=== PATIENT | male | born 1955 | race Two or more races ===

== ENCOUNTER 2025-03-15 13:21 | Inpatient (IN) | payer BC, MEDICAID ==
[~2025-03-15] VITALS: Ht 170.2 cm; Wt 91.2 kg
--- NOTE | 2025-03-15 13:45 | ECG ---
[facility] Test Date: 2025-03-15 Test Time: 13:34:23 Pat Name: CRAIG MURO Department: Room: 0274 Gender: M Procurement Consultant: GP : [id number] Requested By: ANAIS SCALES Order Number: [id number] Reading MD: Daron Escalante Measurements Intervals Conner Rate: 91 P: 40 LA: 149 QRS: 140 QRSD: 102 T: -3 QT: 369 QTc: 455 Interpretive Statements Sinus rhythm Inferolateral infarct, old Electronically Signed On 03-20-2025 20:26:37 PDT by Daron Escalante Please click the below link to view image of tracing.
--- NOTE | 2025-03-15 14:17 | ED.PDOC ---
History of Present Illness HPI Comments 69-year-old male who comes in with chief complaint of left upper abdominal pain times approximately four weeks. The patient describes the pain as burning in nature. The patient states that the pain is a 7/10. There has been no nausea, vomiting, fever or chills. The patient also denies any diarrhea. The patient was able to ambulate into the emergency department's without any problems. The patient actually went to see his primary care doctor and was referred to the emergency department's for further evaluation. He denies any trauma to the area. Chief Complaint: Abdominal Pain Time Seen by MD: 13:25 Reviewed Notes: Nurses Notes, Medications, Allergies (No allergies to medications) Allergies: Coded Allergies: NO KNOWN ALLERGIES (Unverified , 03/15/25) Information Source: Patient Mode of Arrival: Ambulatory Severity: Moderate Timing: Weeks Duration: Since onset Prehospital treatment: None Associated signs and symptoms No associated nausea, vomiting or diarrhea Past Medical History PAST MEDICAL HISTORY: Cancer (Previous history of prostate cancer), DM, High Lipids, HTN Surgical History: Denies all surgeries Family History Family History: Family hx of heart jesus Social History Smoker: Non-Smoker Alcohol: Denies ETOH Use Drugs: Denies Drug Use Lives In: Home Constitutional: denies: chills, diaphoresis, fatigue, fever, malaise, sweats, weakness, others EENTM: denies: blurred vision, double vision, ear bleeding, ear discharge, ear drainage, ear pain, ear ringing, eye pain, eye redness, hearing loss, mouth pain, mouth swelling, nasal discharge, nose bleeding, nose congestion, nose pain, photophobia, tearing, throat pain, throat swelling, voice changes, others Cardiovascular: denies: chest pain, dizzy spells, diaphoresis, Dyspnea on exertion, edema, irregular heart beat, left arm pain, lightheadedness, palpitations, PND, syncope, others Gastrointestinal: reports: abdominal pain Genitourinary: denies: burning, dysuria, flank pain, frequency, hematuria, incontinence, penile discharge, penile sore, pain, testicle pain, testicle swelling, urgency, others Neurological: denies: dizziness, fainting, headache, left sided numbness, left sided weakness, numbness, paresthesia, pre-existing deficit, right sided numbness, right sided weakness, seizure, speech problems, tingling, tremors, weakness, others Musculoskeletal: denies: back pain, gout, joint pain, joint swelling, muscle pain, muscle stiffness, neck pain, others Integumetry: denies: bruises, change in color, change in hair/nails, dryness, laceration, lesions, lumps, rash, wounds, others Allergic/Immunocompromised: denies: Difficulty Healing, Frequent Infections, Hives, Itching, others Hematologic/Lymphatic: denies: anemia, blood clots, easy bleeding, easy bruising, swollen glands, others Endocrine: denies: excessive hunger, excessive sweating, excessive thirst, excessive urination, flushing, intolerance to cold, intolerance to heat, unexplained weight gain, unexplained weight loss, others Psychiatric: denies: anxiety, bipolar disorder, depression, hopeless, panic dis order, schizophrenia, sleepless, suicidal, others Physical Exam General Appearance: Moderate Distress HEENT: Normal ENT Inspection, Pharynx Normal, TMs Normal Neck: Full Range of Motion, Non-Tender, Normal, Normal Inspection Respiratory: Chest Non-Tender, Lungs Clear, No Accessory Muscle Use, No Respiratory Distress, Normal Breath Sounds Cardiovascular: No Edema, No JVD, No Murmur, No Gallop, Normal Peripheral Pulses, Regular Rate/Rhythm Breast Exam: Deferred Gastrointestinal: LUQ, No Organomegaly, No Pulsatile Mass, Normal Bowel Sounds, Soft, Tenderness Genitalia: Deferred Pelvic: Deferred Rectal: Deferred Extremities: No calf tenderness, Normal capillary refill, Normal inspection, Normal range of motion, Non-tender, No pedal edema Musculoskeletal : Apperance: Normal Neurologic: Alert, environmental air specialist II-XII nml as Tested, Motor Weakness, Normal Affect, Normal Mood, No Sensory Deficits Cerebellar Function: Normal Reflexes: Normal Skin: Dry, Normal Color, Warm Lymphatic: No Adenopathy Was a procedure done? Was a procedure done?: No EKG EKG : Pulse Rate (adult): 91 Dike: Normal Cardiac Rhythm: NSR Block: None ST: Nonsp Differential Dx Considerations may include: Incarcerated hernia, abscess, ileus, cholecystitis X-Ray, Labs, Meds, VS Vital Signs Date Time Temp Pulse Resp B/P (MAP) Pulse Ox O2 Delivery O2 Flow Rate FiO2 03/15/25 14:17 91 03/15/25 13:34 91 03/15/25 13:24 98.1 94 20 131/92 97 98.1 Lab Test 03/15/25 14:35 03/15/25 14:05 Range/Units Urine Color Yellow Yellow Urine Clarity Clear Clear Urine pH 6.0 5.0-9.0 Urine Specific [place] 1.017 1.001-1.035 Urine Protein Negative Negative Urine Ketones Negative Negative Urine Blood Negative Negative /uL Urine Nitrite Negative Negative Urine Bilirubin Negative Negative Urine Urobilinogen Normal Negative mg/dL Urine Leukocyte Esterase Negative Negative /uL Urine RBC <1 0 - 3 /hpf Urine Microscopic WBC 0-3 /HPF Urine Squamous Epithelial Cells None seen <5 /hpf Urine Bacteria None seen None Seen /hpf Urine Hyaline Casts Few 0 - 2 /lpf Urine Glucose Normal Normal mg/dL White Blood Count 6.6 4.4-10.8 10^3/uL Red Blood Count 4.74 4.5-5.90 10^6/uL Hemoglobin 15.0 13.5-17.5 g/dL Hematocrit 43.6 41.0-53.0 % Mean Corpuscular Volume 92.0 80.0-100.0 fL Mean Corpuscular Hemoglobin 31.7 28.0-32.0 pg Mean Corpuscular Hemoglobin Concent 34.4 32.0-36.0 g/dL Red Cell Distribution Width 13.7 11.8-14.3 % Platelet Count 258 140-450 10^3/uL Mean Platelet Volume 8.5 6.9-10.8 fL Neutrophils (%) (Auto) 53.3 37.0-80.0 % Lymphocytes (%) (Auto) 32.7 10.0-50.0 % Monocytes (%) (Auto) 7.1 0.0-12.0 % Eosinophils (%) (Auto) 5.7 0.0-7.0 % Basophils (%) (Auto) 1.2 0.0-2.0 % Neutrophils # (Auto) 3.5 1.6-8.6 10 ^3/uL Lymphocytes # (Auto) 2.2 0.4-5.4 10 ^3/uL Monocytes # (Auto) 0.5 0-1.3 10 ^3/uL Eosinophils # (Auto) 0.4 0-0.8 10 ^3/uL Basophils # (Auto) 0.1 0-0.2 10 ^3/uL Nucleated Red Blood Cells 0.0 % Sodium Level 139 136-145 mmol/L Potassium Level 3.8 3.5-5.1 mmol/L Chloride Level 100 98-107 mmol/L Carbon Dioxide Level 26 20-31 mmol/L Anion Gap 13 5-15 Blood Urea Nitrogen 23 9-23 mg/dL Creatinine 1.16 0.700-1.30 mg/dL Glomerular Filtration Rate Calc 69 >90 mL/min BUN/Creatinine Ratio 19.8 10.0-20.0 Serum Glucose 114 H 74-106 mg/dL Calcium Level 9.3 8.7-10.4 mg/dL CAT scan of the abdomen and pelvis shows: IMPRESSION: Limited evaluation without contrast. Findings suggestive of multiple right hepatic lobe hypodense lesions measuring up to 4.8 cm. Recommend multiphasic MRI abdomen to evaluate. Moderate size hiatal hernia. Moderate volume stool in the colon. Colonic diverticular disease. Atherosclerotic disease. Large left scrotal hydrocele. The CBC and chemistry panel are within normal limits. The liver enzymes are within normal limits. The urine test is negative at this time The patient continues to have a significant amount of abdominal pain The patient will be admitted to the hospitalist. Images Reviewed?: Images reviewed and evaluated by me Time of 1ST Reevaluation: 15:02 Reevaluation 1ST: Unchanged Patient Education/Counseling: Diagnosis, Treatment, Prognosis Family Education/Counseling: No Family Present SEPSIS Sepsis Screen Date sepsis recognized/suspect: Mar 15, 2025 Time Sepsis recognized/suspect: 1324 Recent Procedure: No On Antibiotic Therapy: No Respiratory Rate >20: No Heart Rate >90: Yes Temp<36 C (96.8 F) or >38.3 C: No SBP <90 or MAP <65 mmHG: No New Acute Mental Status Change: No Is the patient on CPAP, BIPAP,: No Physician Orders Ct Ab Pel Wo Con-No Oral Or Iv (03/15/25 13:44) Heplock Iv (03/15/25 13:44) Vital Signs Date Time Temp Pulse Resp B/P (MAP) Pulse Ox O2 Delivery O2 Flow Rate FiO2 03/15/25 14:17 91 03/15/25 13:34 91 03/15/25 13:24 98.1 94 20 131/92 97 98.1 Laboratory Tests Test 03/15/25 14:05 White Blood Count 6.6 10^3/uL (4.4-10.8) Departure 1 Departure Time of Disposition: 15:02 Impression: Primary Impression: Intractable abdominal pain Additional Impression: Liver lesion Disposition: 09 ADMITTED INPATIENT Admit to: Med Surg Condition: Fair Critical Care Note Critical Care Time?: No Stability Stability form required: Yes Unstable for transfer: ED Physician Assesment (Clinical assesment) Heart Score Heart Score: Heart Score Response (Comments) Value History N/A 0 EKG N/A 0 Age N/A 0 Risk Factors N/A 0 Troponin N/A 0 Total 0 ANAIS SCALES MD Mar 15, 2025 14:17
[2025-03-15 14:20] LABS: Hematocrit 43.6 % (41.0-53.0); Hemoglobin 15.0 g/dL (13.5-17.5); Mean Corpuscular Hemoglobin 31.7 pg (28.0-32.0); Mean Corpuscular Volume 92.0 fL (80.0-100.0); Nucleated Red Blood Cells % 0.0 %
--- NOTE | 2025-03-15 14:22 | DVH ---
Indication: pain in the luq Technique: CT axial images of the abdomen and pelvis are obtained without contrast. Coronal and sagit altaf reformats were obtained. Radiation Dose Information: CTDI volume is 13.04 mGy. Dose-length product is 765.72 mGy*cm Comparison: None FINDINGS: There is limited interpretation of the abdomen and pelvis without administration of intravenous contr ast. The lung bases demonstrate atelectasis. Adrenal glands, spleen unremarkable in shape. Fatty infiltration of the pancreas. Heterogeneous appe arance of the liver. There are multiple right hepatic lobe lesions including lesions measuring 4.7 c m, 4.8 cm, 3.[address] evidence for cholelithiasis. No hydronephrosis, nephrolithiasis. Moderate size hiatal hernia. Small bowel loops are normal in caliber. Colonic diverticular disease. Moderate volume stool in the colon. Normal appendix. Abdominal aortic atherosclerotic disease and tortuosity. Bladder partially distended. No free pelvic fluid. No inguinal lymphadenopathy. No aggressive osseous process. Severe lumbar degenerative disc disease. Large left scrotal hydrocele. IMPRESSION: Limited evaluation without contrast. Findings suggestive of multiple right hepatic lobe hypodense lesions measuring up to 4.8 cm. Recomme nd multiphasic MRI abdomen to evaluate. Moderate size hiatal hernia. Moderate volume stool in the colon. Colonic diverticular disease. Atherosclerotic disease. Large left scrotal hydrocele. Other findings as described.
[2025-03-15 14:26] LABS: Chloride 100 mmol/L (98-107); Potassium 3.8 mmol/L (3.5-5.1); Sodium 139 mmol/L (136-145)
[2025-03-15 14:27] LABS: Anion Gap 13 (5-15); Calcium 9.3 mg/dL (8.7-10.4); Carbon Dioxide 26 mmol/L (20-31)
[2025-03-15 14:32] LABS: BUN/Creatinine Ratio 19.8 (10.0-20.0)
[2025-03-15 14:33] LABS: Blood Urea Nitrogen 23 mg/dL (9-23); Glucose 114 mg/dL (74-106)
[2025-03-15 14:48] LABS: Urine Protein, UAD Negative (Negative)
[2025-03-15] MEDS ORDERED: ALLO100T PO (18:13)
[2025-03-15] MEDS ORDERED: ATOR20TA50 PO (18:13)
--- NOTE | 2025-03-15 18:14 | DVHHP2 ---
Admitting Diagnosis: Abdominal pain History of Present Illness 69 y/o male patient with history of prostate cancer presents with abdominal pain. Patient describes pain as burning. Denies fever, vomiting, diarrhea. While in the emergency department the patient was evaluated by the provider, As per provider: Labs, vital signs, and imagining monitored. Patient will be admitted for further evaluation and treatment. I discussed admission with the patient/family and is in agreement to treatment plan. Allergies: Coded Allergies: NO KNOWN ALLERGIES (Unverified , 03/15/25) Home Meds Reported Medications Sildenafil Citrate (Viagra) 50 Mg Tab, 50 MG PO, TAB 03/16/25 Simethicone (Simethicone) 80 Mg Chw, 80 MG PO, TAB.CHEW 03/16/25 Omeprazole (Gnp Omeprazole) 20 Mg Tab, 20 MG PO, TAB 03/16/25 Atorvastatin Calcium (ATORVASTATIN CALCIUM) 20 Mg Tab, 1 TAB PO DAILY, #30 TAB 5 Refills 03/16/25 Atorvastatin Calcium (ATORVASTATIN CALCIUM) 20 Mg Tab, 1 TAB PO DAILY 03/15/25 Allopurinol (Allopurinol) 100 Mg Tab, 2 TAB PO DAILY 03/15/25 Current Medications Current Medications Medications (Trade) Dose Ordered Sig/Jona Route PRN Reason Start Time Stop Time Status Last Admin Temazepam (Restoril) 15 mg QHSP PRN PO FOR INSOMNIA 03/15/25 22:00 Enoxaparin Sodium (Lovenox) 40 mg DAILY SC 03/16/25 10:00 Diagnostic Test (Pha) (Accu-Chek Comfort Curve T) 1 strip ACHS 03/15/25 22:00 03/16/25 16:37 Insulin Human Regular (InsuLIN R) HS SC 03/15/25 22:00 03/15/25 22:00 Insulin Human Regular (InsuLIN R) AC SC 03/16/25 07:00 Pantoprazole Sodium (Protonix) 40 mg DAILY IV 03/16/25 10:00 03/16/25 10:34 Polyethylene Glycol (Miralax 17GM Powder) 17 gm DAILY PO 03/16/25 10:00 Review of Systems Constitutional: denies chills, denies fever, denies malaise Eyes: denies eye pain, denies vision change ENT: denies ear pain, denies headache, denies nasal congestion, denies painful swallowing, denies voice change Cardiovascular: denies chest pain, denies edema, denies orthopnea, denies palpitations, denies paroxysmal nocturnal dyspnea Respiratory: denies cough, denies shortness of breath Gastrointestinal: denies constipation, denies diarrhea, denies nausea, denies vomiting Genitourinary: denies dysuria, denies frequent urination, denies urethral discharge Musculoskeletal: denies back pain, denies joint pain, denies muscle pain Skin: denies bruising, denies itching, denies rash Neurological: denies focal weakness, denies headache, denies sensory changes Psychiatric: denies anxiety, denies depression Endocrine: denies polydipsia, denies polyuria Hematologic/Lymphatic: denies easy bleeding, denies easy bruising, denies enlarged lymph nodes Allergic/Immunologic: denies allergy, denies hives Vital Signs Vital Signs Date Time Temp Pulse Resp B/P (MAP) Pulse Ox O2 Delivery O2 Flow Rate FiO2 03/16/25 17:04 97.6 78 16 115/85 (95) 97 97.6 03/16/25 08:00 Room Air* 0 21 Physical Exam General Appearance: alert, no distress HEENT: EOMI, PERRLA, normal external inspect of ears, no icterus, no nasal drainage Neck: no carotid bruit, no jugular venous distention (JVD), no lymphadenopathy Chest: normal thorax Respiratory: clear to auscultation, normal air movement Cardiovascular: regular rate and rhythm, no diastolic murmur, no jugular venous distention (JVD), no rub, no systolic murmur Abdominal: soft, no hepatomegaly, no mass, no splenomegaly, no tenderness Genitourinary: grossly normal external Musculoskeletal: no joint tenderness, no swelling Extremities: normal pulses, no calf tenderness, no clubbing, no cyanosis, no edema Skin: no bruising, no jaundice, no rash Neurological: alert, No focal deficit SEPSIS Sepsis Screen Date sepsis recognized/suspect: Mar 15, 2025 Time Sepsis recognized/suspect: 1710 Recent Procedure: No On Antibiotic Therapy: No Respiratory Rate >20: No Heart Rate >90: No Temp<36 C (96.8 F) or >38.3 C: No SBP <90 or MAP <65 mmHG: No New Acute Mental Status Change: No Is the patient on CPAP, BIPAP,: No Physician Orders Ct Ab Pel Wo Con-No Oral Or Iv (03/15/25 13:44) Heplock Iv (03/15/25 13:44) Admit (03/15/25 18:07) Code Status (03/15/25 18:07) 2 Gm Sodium Diet (03/15/25 Dinner) Sodium Chloride 0.9% (03/15/25 18:15) Hydrocodone-Acet 5/325mg Tab ([place] /32 (03/15/25 18:15) Temazepam (Restoril) (03/15/25 22:00) Ondansetron Hcl (Zofran) (03/15/25 18:15) Docusate Sodium Capsule (Colace Capsule) (03/15/25 18:15) Enoxaparin Sodium (Lovenox) (03/16/25 10:00) Condition: Stable (03/15/25 18:07) Acetaminophen Tablet (Tylenol Tablet) (03/15/25 18:15) * Urology Consult (03/15/25 18:07) Glucose Blood (Accu-Chek Comfort Curve T (03/15/25 22:00) Insulin R (Human) (Insulin R) (03/15/25 22:00) Insulin R (Human) (Insulin R) (03/16/25 07:00) Dextrose 50% Syringe (03/15/25 18:15) Afp Serum Tumor Marker (03/15/25 18:13) Pantoprazole (Protonix) (03/16/25 10:00) Polyethylene Glycol 17g Powder (Miralax (03/16/25 10:00) Morphine Sulfate Injection (03/15/25 18:30) Psa Total+% Free (03/15/25 19:58) Mri Abdomen W And Wo (03/16/25 18:13) * Gi Dvh [employer] Administrator (03/16/25 13:17) Vital Signs Date Time Temp Pulse Resp B/P (MAP) Pulse Ox O2 Delivery O2 Flow Rate FiO2 03/16/25 17:04 97.6 78 16 115/85 (95) 97 97.6 03/16/25 14:49 97.8 64 14 123/86 (98) 96 97.8 03/16/25 08:23 98.3 76 18 126/86 (99) 97 98.3 03/16/25 08:00 18 Room Air* 0 21 03/16/25 05:00 98.4 70 18 109/69 (82) 98 98.4 03/16/25 01:00 98.4 70 18 139/91 (107) 96 98.4 03/15/25 22:50 77 18 94 Room Air* 0 21 03/15/25 22:29 98.7 77 18 143/102 (116) 94 98.7 03/15/25 21:00 98.0 76 17 122/90 (101) 97 98.0 03/15/25 17:11 98.1 75 16 136/85 (102) 97 98.1 03/15/25 17:11 75 16 97 Room Air 03/15/25 14:17 91 03/15/25 13:34 91 03/15/25 13:24 98.1 94 20 131/92 97 98.1 Laboratory Tests Test 03/15/25 14:05 03/16/25 05:26 White Blood Count 6.6 10^3/uL (4.4-10.8) 6.3 10^3/uL (4.4-10.8) Medications Medications Dose Ordered Sig/Jona Route Start Time Stop Time Status Last Admin Dose Admin Pantoprazole Sodium 40 mg DAILY IV 03/16/25 10:00 03/16/25 10:34 Results Labs Test 03/16/25 16:37 03/16/25 05:26 03/15/25 20:47 03/15/25 14:35 Range/Units POC Glucose 111 H 70-106 mg/dl White Blood Count 6.3 4.4-10.8 10^3/uL Red Blood Count 4.50 4.5-5.90 10^6/uL Hemoglobin 14.3 13.5-17.5 g/dL Hematocrit 41.8 41.0-53.0 % Mean Corpuscular Volume 93.0 80.0-100.0 fL Mean Corpuscular Hemoglobin 31.8 28.0-32.0 pg Mean Corpuscular Hemoglobin Concent 34.2 32.0-36.0 g/dL Red Cell Distribution Width 13.7 11.8-14.3 % Platelet Count 264 140-450 10^3/uL Mean Platelet Volume 8.6 6.9-10.8 fL Neutrophils (%) (Auto) 53.0 37.0-80.0 % Lymphocytes (%) (Auto) 29.1 10.0-50.0 % Monocytes (%) (Auto) 9.5 0.0-12.0 % Eosinophils (%) (Auto) 7.3 H 0.0-7.0 % Basophils (%) (Auto) 1.1 0.0-2.0 % Neutrophils # (Auto) 3.3 1.6-8.6 10 ^3/uL Lymphocytes # (Auto) 1.8 0.4-5.4 10 ^3/uL Monocytes # (Auto) 0.6 0-1.3 10 ^3/uL Eosinophils # (Auto) 0.5 0-0.8 10 ^3/uL Basophils # (Auto) 0.1 0-0.2 10 ^3/uL Nucleated Red Blood Cells 0.1 % Sodium Level 139 136-145 mmol/L Potassium Level 3.6 3.5-5.1 mmol/L Chloride Level 101 98-107 mmol/L Carbon Dioxide Level 26 20-31 mmol/L Anion Gap 12 5-15 Blood Urea Nitrogen 22 9-23 mg/dL Creatinine 1.32 H 0.700-1.30 mg/dL Glomerular Filtration Rate Calc 59 >90 mL/min BUN/Creatinine Ratio 16.7 10.0-20.0 Serum Glucose 110 H 74-106 mg/dL Calcium Level 9.0 8.7-10.4 mg/dL Total Bilirubin 1.4 H 0.2-1.0 mg/dL Aspartate Amino Transferase (AST) 22 13-40 U/L Alanine Aminotransferase (ALT) 45 H 7-40 U/L Alkaline Phosphatase 81 46-116 U/L Total Protein 7.3 5.7-8.2 g/dL Albumin 4.2 3.2-4.8 g/dL Urine Color Yellow Yellow Urine Clarity Clear Clear Urine pH 6.0 5.0-9.0 Urine Specific [place] 1.017 1.001-1.035 Urine Protein Negative Negative Urine Ketones Negative Negative Urine Blood Negative Negative /uL Urine Nitrite Negative Negative Urine Bilirubin Negative Negative Urine Urobilinogen Normal Negative mg/dL Urine Leukocyte Esterase Negative Negative /uL Urine RBC <1 0 - 3 /hpf Urine Microscopic WBC 0-3 /HPF Urine Squamous Epithelial Cells None seen <5 /hpf Urine Bacteria None seen None Seen /hpf Urine Hyaline Casts Few 0 - 2 /lpf Urine Glucose Normal Normal mg/dL Test 03/15/25 14:05 Range/Units Carcinoembryonic Antigen 0.83 <=5.0 ng/mL Plan 1. Constipation Monitor, cathartics 2. Left hydrocele Monitor, urology consult 3. Hiatal hernia Monitor 4. Chronic diverticular disease Monitor 5. Hepatic lesions Monitor, MRI liver 6. Hx prostate cancer Monitor Plan discussed with: Patient, Other NATHANAEL KENYON NP Mar 15, 2025 18:13
[2025-03-15] MEDS ORDERED: DEXTROSE (50%) 50ML SYRG IV PRN (18:15)
[2025-03-15] MEDS ORDERED: DOCUSATE SOD 100 MG CAP PO PRN (18:15)
[2025-03-15] MEDS ORDERED: HYDROcodone-ACET 5/325MG TAB PO PRN (18:15)
[2025-03-15] MEDS ORDERED: ONDANSETRON HCL 4 MG/2 ML VIAL IV PRN (18:15)
[2025-03-15] MEDS ORDERED: ACETAMINOPHEN 325 MG TAB PO PRN (18:15)
[2025-03-15] MEDS ORDERED: MORPHINE SULFATE 4 MG/ML SYR/VIAL IV PRN (18:30)
[2025-03-15] MEDS: SODIUM CHLORIDE 0.9% 1,000 ML IV SCH (19:03)
--- NOTE | 2025-03-15 19:58 | DVHINCON2 ---
Date of service: Mar 15, 2025 Referring Physician Hospitalist Reason for Consultation Left hydrocele History of Present Illness 69-year-old male who comes in with chief complaint of left upper abdominal pain times approximately four weeks. The patient describes the pain as burning in nature. The patient states that the pain is a 7/10. There has been no nausea, vomiting, fever or chills. The patient also denies any diarrhea. The patient was able to ambulate into the emergency department's without any problems. The patient actually went to see his primary care doctor and was referred to the emergency department's for further evaluation. He denies any trauma to the area . CT Scan shows hiatal hernia and large left hydrocele. Patient states he has had this hydrocele since 1997. It does not bother him. It is not causing any significant discomfort. Past Medical History Cancer (Previous history of prostate cancer), DM, High Lipids, HTN Past Surgical History Prostate biopsy? Allergies: Coded Allergies: NO KNOWN ALLERGIES (Unverified , 03/15/25) Home Meds Reported Medications Sildenafil Citrate (Viagra) 50 Mg Tab, 50 MG PO, TAB 03/16/25 Simethicone (Simethicone) 80 Mg Chw, 80 MG PO, TAB.CHEW 03/16/25 Omeprazole (Gnp Omeprazole) 20 Mg Tab, 20 MG PO, TAB 03/16/25 Atorvastatin Calcium (ATORVASTATIN CALCIUM) 20 Mg Tab, 1 TAB PO DAILY, #30 TAB 5 Refills 03/16/25 Atorvastatin Calcium (ATORVASTATIN CALCIUM) 20 Mg Tab, 1 TAB PO DAILY 03/15/25 Allopurinol (Allopurinol) 100 Mg Tab, 2 TAB PO DAILY 03/15/25 Current Medications Current Medications Medications (Trade) Dose Ordered Sig/Jona Route PRN Reason Start Time Stop Time Status Last Admin Sodium Chloride 1,000 ml @ 60 mls/hr [id number] IV 03/15/25 18:15 03/15/25 19:03 Acetaminophen/ Hydrocodone Bitart ([place] 5/325MG Tab) 1 tab Q4HP PRN PO MODERATE PAIN (4-6 PAIN SCALE) 03/15/25 18:15 Temazepam (Restoril) 15 mg QHSP PRN PO FOR INSOMNIA 03/15/25 22:00 Ondansetron HCl (Zofran) 4 mg Q4HP PRN IV NAUSEA / VOMITING 03/15/25 18:15 Docusate Sodium (Colace Capsule) 100 mg BIDPRN PRN PO FOR CONSTIPATION 03/15/25 18:15 Enoxaparin Sodium (Lovenox) 40 mg DAILY SC 03/16/25 10:00 Acetaminophen (Tylenol Tablet) 650 mg Q6HP PRN PO PAIN SCALE 1-3 OR TEMP>100.4 03/15/25 18:15 Morphine Sulfate 2 mg Q4HPRN PRN IV SEVERE PAIN (7-10 PAIN SCALE) 03/15/25 18:30 Diagnostic Test (Pha) (Accu-Chek Comfort Curve T) 1 strip ACHS 03/15/25 22:00 Insulin Human Regular (InsuLIN R) HS SC 03/15/25 22:00 Insulin Human Regular (InsuLIN R) AC SC 03/16/25 07:00 Dextrose 50 ml UD PRN IV Blood Sugar LESS THAN 60 03/15/25 18:15 Pantoprazole Sodium (Protonix) 40 mg DAILY IV 03/16/25 10:00 Polyethylene Glycol (Miralax 17GM Powder) 17 gm DAILY PO 03/16/25 10:00 Review of Systems ED Review of Systems Constitutional: denies: chills, diaphoresis, fatigue, fever, malaise, sweats, weakness, others EENTM: denies: blurred vision, double vision, ear bleeding, ear discharge, ear drainage, ear pain, ear ringing, eye pain, eye redness, hearing loss, mouth pain, mouth swelling, nasal discharge, nose bleeding, nose congestion, nose pain, photophobia, tearing, throat pain, throat swelling, voice changes, others Cardiovascular: denies: chest pain, dizzy spells, diaphoresis, Dyspnea on exertion, edema, irregular heart beat, left arm pain, lightheadedness, palpitations, PND, syncope, others Gastrointestinal: reports: abdominal pain Genitourinary: denies: burning, dysuria, flank pain, frequency, hematuria, incontinence, penile discharge, penile sore, pain, testicle pain, testicle swelling, urgency, others Neurological: denies: dizziness, fainting, headache, left sided numbness, left sided weakness, numbness, paresthesia, pre-existing deficit, right sided numbness, right sided weakness, seizure, speech problems, tingling, tremors, weakness, others Musculoskeletal: denies: back pain, gout, joint pain, joint swelling, muscle pain, muscle stiffness, neck pain, others Integumetry: denies: bruises, change in color, change in hair/nails, dryness, laceration, lesions, lumps, rash, wounds, others Allergic/Immunocompromised: denies: Difficulty Healing, Frequent Infections, Hives, Itching, others Hematologic/Lymphatic: denies: anemia, blood clots, easy bleeding, easy bruising, swollen glands, others Endocrine: denies: excessive hunger, excessive sweating, excessive thirst, excessive urination, flushing, intolerance to cold, intolerance to heat, unexplained weight gain, unexplained weight loss, others Psychiatric: denies: anxiety, bipolar disorder, depression, hopeless, panic disorder, schizophrenia, sleepless, suicidal, others Vital Signs Vital Signs Date Time Temp Pulse Resp B/P (MAP) Pulse Ox O2 Delivery O2 Flow Rate FiO2 03/15/25 17:11 98.1 75 16 136/85 (102) 97 98.1 03/15/25 17:11 Room Air Physical Exam General Appearance: Moderate Distress HEENT: Normal ENT Inspection, Pharynx Normal, TMs Normal Neck: Full Range of Motion, Non-Tender, Normal, Normal Inspection Respiratory: Chest Non-Tender, Lungs Clear, No Accessory Muscle Use, No Respiratory Distress, Normal Breath Sounds Cardiovascular: No Edema, No JVD, No Murmur, No Gallop, Normal Peripheral Pulses, Regular Rate/Rhythm Breast Exam: Deferred Gastrointestinal: LUQ, No Organomegaly, No Pulsatile Mass, Normal Bowel Sounds, Soft, Tenderness Genitalia: Normal phallus, slightly enlarged left scrotum with notable hydrocele Extremities: No calf tenderness, Normal capillary refill, Normal inspection, Normal range of motion, Non-tender, No pedal edema Musculoskeletal : Apperance: Normal Neurologic: Alert, human resources assistant II-XII nml as Tested, Motor Weakness, Normal Affect, Normal Mood, No Sensory Deficits Cerebellar Function: Normal Reflexes: Normal Skin: Dry, Normal Color, Warm Lymphatic: No Adenopathy Labs/Diagnostic Data Labs Test 03/15/25 14:35 03/15/25 14:05 Range/Units Urine Color Yellow Yellow Urine Clarity Clear Clear Urine pH 6.0 5.0-9.0 Urine Specific [place] 1.017 1.001-1.035 Urine Protein Negative Negative Urine Ketones Negative Negative Urine Blood Negative Negative /uL Urine Nitrite Negative Negative Urine Bilirubin Negative Negative Urine Urobilinogen Normal Negative mg/dL Urine Leukocyte Esterase Negative Negative /uL Urine RBC <1 0 - 3 /hpf Urine Microscopic WBC 0-3 /HPF Urine Squamous Epithelial Cells None seen <5 /hpf Urine Bacteria None seen None Seen /hpf Urine Hyaline Casts Few 0 - 2 /lpf Urine Glucose Normal Normal mg/dL White Blood Count 6.6 4.4-10.8 10^3/uL Red Blood Count 4.74 4.5-5.90 10^6/uL Hemoglobin 15.0 13.5-17.5 g/dL Hematocrit 43.6 41.0-53.0 % Mean Corpuscular Volume 92.0 80.0-100.0 fL Mean Corpuscular Hemoglobin 31.7 28.0-32.0 pg Mean Corpuscular Hemoglobin Concent 34.4 32.0-36.0 g/dL Red Cell Distribution Width 13.7 11.8-14.3 % Platelet Count 258 140-450 10^3/uL Mean Platelet Volume 8.5 6.9-10.8 fL Neutrophils (%) (Auto) 53.3 37.0-80.0 % Lymphocytes (%) (Auto) 32.7 10.0-50.0 % Monocytes (%) (Auto) 7.1 0.0-12.0 % Eosinophils (%) (Auto) 5.7 0.0-7.0 % Basophils (%) (Auto) 1.2 0.0-2.0 % Neutrophils # (Auto) 3.5 1.6-8.6 10 ^3/uL Lymphocytes # (Auto) 2.2 0.4-5.4 10 ^3/uL Monocytes # (Auto) 0.5 0-1.3 10 ^3/uL Eosinophils # (Auto) 0.4 0-0.8 10 ^3/uL Basophils # (Auto) 0.1 0-0.2 10 ^3/uL Nucleated Red Blood Cells 0.0 % Sodium Level 139 136-145 mmol/L Potassium Level 3.8 3.5-5.1 mmol/L Chloride Level 100 98-107 mmol/L Carbon Dioxide Level 26 20-31 mmol/L Anion Gap 13 5-15 Blood Urea Nitrogen 23 9-23 mg/dL Creatinine 1.16 0.700-1.30 mg/dL Glomerular Filtration Rate Calc 69 >90 mL/min BUN/Creatinine Ratio 19.8 10.0-20.0 Serum Glucose 114 H 74-106 mg/dL Calcium Level 9.3 8.7-10.4 mg/dL Carcinoembryonic Antigen 0.83 <=5.0 ng/mL Assessment Left hydrocele- asymptomatic Plan/Recommendation Conservative management is recommended. Plan discussed with: Patient, Other JOE PARSONS MD Mar 15, 2025 19:58
[2025-03-15 21:00] VITALS: BP 122/90; PULSE 76; RESP 17; TEMP 98; O2SAT 97
[2025-03-15] MEDS ORDERED: TEMAZEPAM 15 MG CAP PO PRN (22:00)
[2025-03-15] MEDS: ACCU-CHEK COMFORT CURVE STRIP VI SCH (22:00)
[2025-03-15] MEDS: InsuLIN REG 1unit/0.01ml Soln (100units/ml) SC SCH (22:00)
[2025-03-15 22:29] VITALS: BP 143/102; PULSE 77; RESP 18; TEMP 98.7; O2SAT 94
[2025-03-15 22:50] VITALS: PULSE 77; RESP 18; O2SAT 94
[2025-03-16] VITALS (7 sets, daily range): BP systolic 109–139; BP diastolic 69–91; PULSE 60–78; RESP 14–18; TEMP 97.6–98.4; O2SAT 96–98
[2025-03-16] MEDS ORDERED: OMEP20TA PO (00:21)
[2025-03-16] MEDS ORDERED: SIME80CH49 PO (00:23)
[2025-03-16] MEDS ORDERED: SILD50TA PO (00:24)
[2025-03-16 06:12] LABS: Hematocrit 41.8 % (41.0-53.0); Hemoglobin 14.3 g/dL (13.5-17.5); Mean Corpuscular Hemoglobin 31.8 pg (28.0-32.0); Mean Corpuscular Volume 93.0 fL (80.0-100.0); Nucleated Red Blood Cells % 0.1 %
[2025-03-16] MEDS: InsuLIN REG 1unit/0.01ml Soln (100units/ml) SC SCH (06:19)
[2025-03-16 06:30] LABS: Albumin 4.2 g/dL (3.2-4.8); Alkaline Phosphatase 81 U/L (46-116); Anion Gap 12 (5-15); BUN/Creatinine Ratio 16.7 (10.0-20.0); Blood Urea Nitrogen 22 mg/dL (9-23); Calcium 9.0 mg/dL (8.7-10.4); Carbon Dioxide 26 mmol/L (20-31); Chloride 101 mmol/L (98-107); Potassium 3.6 mmol/L (3.5-5.1); Sodium 139 mmol/L (136-145); Total Protein 7.3 g/dL (5.7-8.2)
[2025-03-16 06:40] LABS: Alanine Aminotransferase 45 U/L (7-40); Bilirubin, Total 1.4 mg/dL (0.2-1.0); Glucose 110 mg/dL (74-106)
[2025-03-16] MEDS: GADOTERATE MEG 10 MMOL/20ml INJ (0.5MMOL/ml) IV ONE (09:35)
[2025-03-16] MEDS: POLYETHYLENE GLYCOL 17 GM PWDR PO SCH (10:00)
[2025-03-16] MEDS: ENOXAPARIN SOD 40 MG/0.4 ML SYRINGE SC SCH (10:00)
[2025-03-16] MEDS: PANTOPRAZOLE 40 MG/10 ML VIAL INJ IV SCH (10:34)
--- NOTE | 2025-03-16 12:36 | DVHPN2 ---
Progress Note - Dictate Date Seen: Mar 16, 2025 Medical Necessity Reason Pt with a Central, PICC or Fol: No vital signs Vital Sign Date Time Temp Pulse Resp B/P (MAP) Pulse Ox O2 Delivery O2 Flow Rate FiO2 03/16/25 08:23 98.3 76 18 126/86 (99) 97 98.3 03/15/25 22:50 Room Air* 0 21 Total Intake and Output 03/15/25 03/15/25 03/16/25 14:59 22:59 06:59 Intake Total 200 ml Output Total 0 ml Balance 200 ml medications Current Medications Medications Dose Ordered Sig/Jona Route Start Time Stop Time Status Last Admin Dose Admin Sodium Chloride 1,000 ml @ 60 mls/hr [id number] IV 03/15/25 18:15 03/16/25 10:38 60 MLS/HR Acetaminophen/ Hydrocodone Bitart 1 tab Q4HP PRN PO 03/15/25 18:15 Temazepam 15 mg QHSP PRN PO 03/15/25 22:00 Ondansetron HCl 4 mg Q4HP PRN IV 03/15/25 18:15 Docusate Sodium 100 mg BIDPRN PRN PO 03/15/25 18:15 Enoxaparin Sodium 40 mg DAILY SC 03/16/25 10:00 Acetaminophen 650 mg Q6HP PRN PO 03/15/25 18:15 Morphine Sulfate 2 mg Q4HPRN PRN IV 03/15/25 18:30 Diagnostic Test (Pha) 1 strip ACHS 03/15/25 22:00 03/16/25 11:20 1 STRIP Insulin Human Regular HS SC 03/15/25 22:00 03/15/25 22:00 2 UNITS Insulin Human Regular AC SC 03/16/25 07:00 Dextrose 50 ml UD PRN IV 03/15/25 18:15 Pantoprazole Sodium 40 mg DAILY IV 03/16/25 10:00 03/16/25 10:34 40 MG Polyethylene Glycol 17 gm DAILY PO 03/16/25 10:00 objective General Appearance: alert, no distress HEENT: EOMI, PERRLA, normal external inspect of ears, no icterus, no nasal drainage Neck: no carotid bruit, no jugular venous distention (JVD), no lymphadenopathy Chest: normal thorax Respiratory: clear to auscultation, normal air movement Cardiovascular: regular rate and rhythm, no diastolic murmur, no jugular venous distention (JVD), no rub, no systolic murmur Abdominal: soft, no hepatomegaly, no mass, no splenomegaly, no tenderness Genitourinary: grossly normal external Musculoskeletal: no joint tenderness, no swelling Extremities: normal pulses, no calf tenderness, no clubbing, no cyanosis, no edema Skin: no bruising, no jaundice, no rash Neurological: alert, No focal deficit laboratory and microbiology Laboratory Tests 03/16/25 05:26 Test 03/16/25 05:26 Range/Units Serum Glucose 110 H 74-106 mg/dL Problem List 1. Constipation Monitor, cathartics 2. Left hydrocele Monitor, urology consult 3. Hiatal hernia Monitor 4. Chronic diverticular disease Monitor 5. Hepatic lesions Monitor, MRI liver 6. Hx prostate cancer Monitor Assessment/Plan Subjective: Patient is awake and alert. Objective: Patient was admitted for abdominal pain. CT imaging showed large hiatal hernia, diverticular colon, constipation, and multiple liver masses. Patient has a history of prostate cancer. CEA is negative. Alpha-fetoprotein is pending. PSA is also pending. Plan: Await tumor marker labs. Start cathartics for constipation. GI consult for hiatal hernia. Plan for MRI liver protocol to evaluate liver masses. Plan discussed with: Patient, Other NATHANAEL KENYON NP Mar 16, 2025 12:36
--- NOTE | 2025-03-16 13:37 | DVH ---
CLINICAL HISTORY: Liver lesions. Left upper quadrant pain. TECHNIQUE: Multi sequence multi planar MRI images of the abdomen were obtained prior to and after th e uneventful administration of 20 mL Clariscan contrast. COMPARISON: CT CT AB PEL WO CON-NO ORAL OR IV on DOS: 03/15/25 FINDINGS: There is prominent artifact on the postcontrast images, likely due to motion and artifact associated with body habitus. There is hepatic steatosis with scattered areas of focal fatty sparing and areas of focal fatty infiltration. The lesions in the right hepatic lobe described on prior CT re port appear to be due to areas of focal fatty infiltration when correlated with the in and out of pha se images. T2 hyperintense lesion measuring up to 1.2 cm in the left hepatic lobe segment III demonst rates progressive enhancement on multiphase postcontrast images, with persistent enhancement greater than the adjacent liver parenchyma on delayed images, likely hemangioma. There are a few additional T 2 hyperintense lesions, which are not well-visualized on multiphase postcontrast images due to their small size and artifact obscuring visualization. No suspicious liver lesion identified given the limi tations of the examination. The gallbladder is mildly distended. No gallstones visualized. No biliary ductal dilatation. The spleen, pancreas, and adrenal glands are unremarkable. There is no hydronephr osis. Small cysts are seen in both kidneys. No suspicious renal mass. No abdominal aortic aneurysm. There is a moderate-sized hiatal hernia. Moderate ingested material visualized in the stomach. IMPRESSION: 1. Small lesion in the left hepatic lobe is most likely a benign hemangioma. Additional small T2 hype rintense foci are seen that are not well characterized on the postcontrast images due to their small size and prominent artifact on the postcontrast images. 2. Suspected lesions in the right hepatic lobe seen on CT are most consistent with areas of focal fat ty infiltration on MRI. 3. Bilateral renal cysts. 4. Moderate hiatal hernia.
--- NOTE | 2025-03-16 22:55 | DVHINCON2 ---
Date of service: Mar 16, 2025 Referring Physician Adore Fraknlin Reason for Consultation LUQ pain and liver lesions History of Present Illness 69 y/o male patient with history of prostate cancer presents with abdominal pain. Patient describes pain as burning. Denies fever, vomiting, diarrhea. Patient feels that the pain is related to his hernia. There was no nausea vomiting or GI bleeding. His last colonoscopy was eight years ago Patient seen at bedside resting comfortably. Past Medical History Cancer (Previous history of prostate cancer), DM, High Lipids, HTN Past Surgical History Cataracts Family History: FH: heart disease G8 MOTHER G8 FATHER Allergies: Coded Allergies: NO KNOWN ALLERGIES (Unverified , 03/15/25) Home Meds Reported Medications Sildenafil Citrate (Viagra) 50 Mg Tab, 50 MG PO, TAB 03/16/25 Simethicone (Simethicone) 80 Mg Chw, 80 MG PO, TAB.CHEW 03/16/25 Omeprazole (Gnp Omeprazole) 20 Mg Tab, 20 MG PO, TAB 03/16/25 Atorvastatin Calcium (ATORVASTATIN CALCIUM) 20 Mg Tab, 1 TAB PO DAILY, #30 TAB 5 Refills 03/16/25 Atorvastatin Calcium (ATORVASTATIN CALCIUM) 20 Mg Tab, 1 TAB PO DAILY 03/15/25 Allopurinol (Allopurinol) 100 Mg Tab, 2 TAB PO DAILY 03/15/25 Current Medications Current Medications Medications (Trade) Dose Ordered Sig/Jona Route PRN Reason Start Time Stop Time Status Last Admin Enoxaparin Sodium (Lovenox) 40 mg DAILY SC 03/16/25 10:00 Insulin Human Regular (InsuLIN R) AC SC 03/16/25 07:00 Pantoprazole Sodium (Protonix) 40 mg DAILY IV 03/16/25 10:00 03/16/25 10:34 Polyethylene Glycol (Miralax 17GM Powder) 17 gm DAILY PO 03/16/25 10:00 Vital Signs Vital Signs Date Time Temp Pulse Resp B/P (MAP) Pulse Ox O2 Delivery O2 Flow Rate FiO2 03/16/25 17:04 97.6 78 16 115/85 (95) 97 97.6 03/16/25 08:00 Room Air* 0 21 Physical Exam General Appearance: alert, no distress HEENT: EOMI, PERRLA, normal external inspect of ears, no icterus, no nasal drainage Neck: no carotid bruit, no jugular venous distention (JVD), no lymphadenopathy Chest: normal thorax Respiratory: clear to auscultation, normal air movement Cardiovascular: regular rate and rhythm, no diastolic murmur, no jugular venous distention (JVD), no rub, no systolic murmur Abdominal: soft, no hepatomegaly, no mass, no splenomegaly, no tenderness Genitourinary: grossly normal external Musculoskeletal: no joint tenderness, no swelling Extremities: normal pulses, no calf tenderness, no clubbing, no cyanosis, no edema Skin: no bruising, no jaundice, no rash Neurological: alert, No focal deficit Labs/Diagnostic Data Labs Test 03/16/25 21:25 03/16/25 05:26 03/15/25 20:47 03/15/25 14:35 Range/Units POC Glucose 135 H 70-106 mg/dl White Blood Count 6.3 4.4-10.8 10^3/uL Red Blood Count 4.50 4.5-5.90 10^6/uL Hemoglobin 14.3 13.5-17.5 g/dL Hematocrit 41.8 41.0-53.0 % Mean Corpuscular Volume 93.0 80.0-100.0 fL Mean Corpuscular Hemoglobin 31.8 28.0-32.0 pg Mean Corpuscular Hemoglobin Concent 34.2 32.0-36.0 g/dL Red Cell Distribution Width 13.7 11.8-14.3 % Platelet Count 264 140-450 10^3/uL Mean Platelet Volume 8.6 6.9-10.8 fL Neutrophils (%) (Auto) 53.0 37.0-80.0 % Lymphocytes (%) (Auto) 29.1 10.0-50.0 % Monocytes (%) (Auto) 9.5 0.0-12.0 % Eosinophils (%) (Auto) 7.3 H 0.0-7.0 % Basophils (%) (Auto) 1.1 0.0-2.0 % Neutrophils # (Auto) 3.3 1.6-8.6 10 ^3/uL Lymphocytes # (Auto) 1.8 0.4-5.4 10 ^3/uL Monocytes # (Auto) 0.6 0-1.3 10 ^3/uL Eosinophils # (Auto) 0.5 0-0.8 10 ^3/uL Basophils # (Auto) 0.1 0-0.2 10 ^3/uL Nucleated Red Blood Cells 0.1 % Sodium Level 139 136-145 mmol/L Potassium Level 3.6 3.5-5.1 mmol/L Chloride Level 101 98-107 mmol/L Carbon Dioxide Level 26 20-31 mmol/L Anion Gap 12 5-15 Blood Urea Nitrogen 22 9-23 mg/dL Creatinine 1.32 H 0.700-1.30 mg/dL Glomerular Filtration Rate Calc 59 >90 mL/min BUN/Creatinine Ratio 16.7 10.0-20.0 Serum Glucose 110 H 74-106 mg/dL Calcium Level 9.0 8.7-10.4 mg/dL Total Bilirubin 1.4 H 0.2-1.0 mg/dL Aspartate Amino Transferase (AST) 22 13-40 U/L Alanine Aminotransferase (ALT) 45 H 7-40 U/L Alkaline Phosphatase 81 46-116 U/L Total Protein 7.3 5.7-8.2 g/dL Albumin 4.2 3.2-4.8 g/dL Urine Color Yellow Yellow Urine Clarity Clear Clear Urine pH 6.0 5.0-9.0 Urine Specific [place] 1.017 1.001-1.035 Urine Protein Negative Negative Urine Ketones Negative Negative Urine Blood Negative Negative /uL Urine Nitrite Negative Negative Urine Bilirubin Negative Negative Urine Urobilinogen Normal Negative mg/dL Urine Leukocyte Esterase Negative Negative /uL Urine RBC <1 0 - 3 /hpf Urine Microscopic WBC 0-3 /HPF Urine Squamous Epithelial Cells None seen <5 /hpf Urine Bacteria None seen None Seen /hpf Urine Hyaline Casts Few 0 - 2 /lpf Urine Glucose Normal Normal mg/dL Test 03/15/25 14:05 Range/Units Carcinoembryonic Antigen 0.83 <=5.0 ng/mL MRI Abd IMPRESSION: 1. Small lesion in the left hepatic lobe is most likely a benign hemangioma. Additional small T2 hyperintense foci are seen that are not well characterized on the postcontrast images due to their small size and prominent artifact on the postcontrast images. 2. Suspected lesions in the right hepatic lobe seen on CT are most consistent with areas of focal fatty infiltration on MRI. 3. Bilateral renal cysts. 4. Moderate hiatal hernia. CT SCAN ABD PELVIS IMPRESSION: Limited evaluation without contrast. Findings suggestive of multiple right hepatic lobe hypodense lesions measuring up to 4.8 cm. Recommend multiphasic MRI abdomen to evaluate. Moderate size hiatal hernia. Moderate volume stool in the colon. Colonic diverticular disease. Atherosclerotic disease. Large left scrotal hydrocele. Other findings as described. Problems(with codes): (1) Intractable abdominal pain (2) Liver lesion (3) Left hydrocele Plan/Recommendation Plan Protonix 40 mg p.o. twice a day Stool softeners with Colace and MiraLax Supportive care and advance diet for now Patient has been advised elective EGD and colonoscopy possibly as an outpatient Plan discussed with: Patient KEVON POOLE MD Mar 16, 2025 22:55
[2025-03-17] MEDS: SUCRALFATE 1 GM/10 ML ORAL SUSP PO SCH (06:07)
[2025-03-17 08:00] VITALS: PULSE 74; RESP 18
[2025-03-17 08:07] LABS: Prostate Specific Antigen 0.5 ng/mL (0.0-4.0)
[2025-03-17 09:00] VITALS: BP 123/89; PULSE 62; RESP 20; TEMP 97.7; O2SAT 99
[2025-03-17] MEDS: DOCUSATE SOD 100 MG CAP PO SCH (09:39)
--- NOTE | 2025-03-17 12:15 | DVHPN2 ---
Progress Note - Dictate Date Seen: Mar 17, 2025 Medical Necessity Reason Pt with a Central, PICC or Fol: No vital signs Vital Sign Date Time Temp Pulse Resp B/P (MAP) Pulse Ox O2 Delivery O2 Flow Rate FiO2 03/17/25 09:00 97.7 62 20 123/89 (100) 99 97.7 03/17/25 08:00 Room Air* 0 21 Total Intake and Output 03/16/25 03/16/25 03/17/25 15:00 23:00 07:00 Intake Total 1000 ml 600 ml Balance 1000 ml 600 ml medications Current Medications Medications Dose Ordered Sig/Jona Route Start Time Stop Time Status Last Admin Dose Admin Sodium Chloride 1,000 ml @ 60 mls/hr [id number] IV 03/15/25 18:15 03/17/25 03:35 60 MLS/HR Acetaminophen/ Hydrocodone Bitart 1 tab Q4HP PRN PO 03/15/25 18:15 Temazepam 15 mg QHSP PRN PO 03/15/25 22:00 Ondansetron HCl 4 mg Q4HP PRN IV 03/15/25 18:15 Docusate Sodium 100 mg BIDPRN PRN PO 03/15/25 18:15 Enoxaparin Sodium 40 mg DAILY SC 03/16/25 10:00 Acetaminophen 650 mg Q6HP PRN PO 03/15/25 18:15 Morphine Sulfate 2 mg Q4HPRN PRN IV 03/15/25 18:30 Diagnostic Test (Pha) 1 strip ACHS 03/15/25 22:00 03/17/25 11:30 1 STRIP Insulin Human Regular HS SC 03/15/25 22:00 03/16/25 21:29 2 UNITS Insulin Human Regular AC SC 03/16/25 07:00 03/17/25 06:19 2 UNITS Dextrose 50 ml UD PRN IV 03/15/25 18:15 Pantoprazole Sodium 40 mg DAILY IV 03/16/25 10:00 03/17/25 09:47 40 MG Polyethylene Glycol 17 gm DAILY PO 03/16/25 10:00 Sucralfate 1 gm BID@0600,2200 PO 03/17/25 06:00 03/17/25 06:07 1 GM Docusate Sodium 100 mg BID PO 03/17/25 10:00 objective General Appearance: alert, no distress HEENT: EOMI, PERRLA, normal external inspect of ears, no icterus, no nasal drainage Neck: no carotid bruit, no jugular venous distention (JVD), no lymphadenopathy Chest: normal thorax Respiratory: clear to auscultation, normal air movement Cardiovascular: regular rate and rhythm, no diastolic murmur, no jugular venous distention (JVD), no rub, no systolic murmur Abdominal: soft, no hepatomegaly, no mass, no splenomegaly, no tenderness Genitourinary: grossly normal external Musculoskeletal: no joint tenderness, no swelling Extremities: normal pulses, no calf tenderness, no clubbing, no cyanosis, no edema Skin: no bruising, no jaundice, no rash Neurological: alert, No focal deficit laboratory and microbiology Laboratory Tests 03/16/25 05:26 Test 03/16/25 05:26 Range/Units Serum Glucose 110 H 74-106 mg/dL Problem List 1. Constipation Monitor, cathartics 2. Left hydrocele Monitor, urology consult 3. Hiatal hernia Monitor 4. Chronic diverticular disease Monitor 5. Hepatic lesions Monitor, MRI liver 6. Hx prostate cancer Monitor Assessment/Plan Subjective Patient was not seen in room. Objective Patient was taken down for EGD. Patient was admitted for abdominal pain. Patient was found to have a large left scrotal hydrocele. Patient was seen by urology who will follow-up outpatient for possible drainage. Patient also had constipation and a hiatal hernia. Patient was seen by GI. He does have a history of prostate cancer. PSA alpha-fetoprotein and CEA are within normal limits. Patient had MRI per liver protocol. Patient previously seen liver lesions were found to be a benign hemangioma and fatty infiltration of liver. Plan EGD. Outpatient colonoscopy. Plan for DC in a.m. Plan discussed with: NATHANAEL Coleman NP Mar 17, 2025 12:15
[2025-03-17] MEDS ORDERED: METOCLOPRAMIDE HCL 5MG/ml INJ 2ml VIAL ONE (13:23)
[2025-03-17] MEDS ORDERED: ONDANSETRON HCL 4 MG/2 ML VIAL ONE (13:23)
[2025-03-17] MEDS ORDERED: PROPOFOL 10 MG/ML 20 ML IV ONE (13:24)
[2025-03-17 13:37] VITALS: PULSE 79; RESP 19
--- NOTE | 2025-03-17 14:04 | DVHOP2 ---
Operative Report DATE OF OPERATION: 03/17/25 PROCEDURE: Upper Endoscopy with biopsy. PREOPERATIVE INDICATION: The patient is a 69 -year-old male undergoing endoscopy for left upper quadrant pain POSTOPERATIVE DIAGNOSES: 1. 4-5 cm sliding-type hiatal hernia with slightly irregular squamocolumnar junction minimal grade a erosive esophagitis 2. Minimal gastroduodenitis otherwise normal examination up to the 2nd and 3rd part of the duodenum PROCEDURE PERFORMED BY: Kevon Diaz GI NURSE: Britt SCOPE: Olympus videoendoscope. ASA CLASS: 3 PREOPERATIVE MEDICATIONS: Mac sedation, Cristhian Sherwood PROCEDURE IN DETAIL: After obtaining an informed consent, the patient was placed on left lateral decubitus position. The patient was then sedated with the above medications. A bite block was placed between his teeth. The endoscope was then passed through the oropharynx, into the esophagus, and through the stomach and pylorus up to the second and third part of the duodenum. The endoscope was then withdrawn. The 2nd and 3rd part of the duodenum were normal and the duodenal bulb showed minimal duodenitis The pre-pyloric area and antrum showed minimal gastritis. Duodenal and gastric biopsies were obtained. On retroflexion a hiatal hernia was noted. The endoscope was then withdrawn into distal esophagus Patient had a 5 cm sliding-type hiatal hernia with slightly irregular squamocolumnar junction minimal grade a erosive esophagitis. GE junction biopsies were obtained. There was sharp angulation of the distal esophagus above the hiatal hernia otherwise normal esophagus The patient tolerated the procedure well without difficulty. COMPLICATIONS : None SPECIMENS: Duodenal biopsies Gastric biopsies GE junction biopsies DISPOSITION: Transfer back to the floor Stable PLAN: 1. Await for biopsy result 2. Will place pt on Protonix 40 mg p.o. daily 3. Resume GI soft diet advance as tolerated 4. Lifestyle and dietary modifications for GERD 5. Outpatient follow up with me to schedule screening colonoscopy KEVON DIAZ MD Mar 17, 2025 14:04
[2025-03-17 17:00] VITALS: BP 138/93; PULSE 85; RESP 20; TEMP 97.7; O2SAT 96
[2025-03-17 20:00] VITALS: PULSE 82; RESP 18; O2SAT 94
[2025-03-17 21:00] VITALS: BP 144/95; PULSE 82; RESP 18; TEMP 98.3; O2SAT 94
[2025-03-18 01:00] VITALS: BP 127/82; PULSE 66; RESP 18; TEMP 97.8; O2SAT 95
[2025-03-18 05:00] VITALS: BP 135/97; PULSE 73; RESP 18; TEMP 98.1; O2SAT 96
[2025-03-18 07:30] VITALS: PULSE 71; RESP 20; O2SAT 94
[2025-03-18 09:00] VITALS: BP 137/97; PULSE 71; RESP 20; TEMP 98.1; O2SAT 94
[2025-03-18] MEDS ORDERED: PANT40TA2 PO (10:30)
[2025-03-18] MEDS ORDERED: SUCR1TAB31 PO (10:30)
--- NOTE | 2025-03-18 10:34 | DVHDS2 ---
Discharge Summary Date of Admission Mar 15, 2025 at 18:07 Date of Discharge: Mar 18, 2025 Labs/Diagnostic Data: Laboratory Results Test 03/17/25 21:02 03/17/25 15:29 03/16/25 05:26 03/15/25 20:47 POC Glucose 130 mg/dl (70-106) CA 19-9 Antigen 5 U/mL (0-35) White Blood Count 6.3 10^3/uL (4.4-10.8) Red Blood Count 4.50 10^6/uL (4.5-5.90) Hemoglobin 14.3 g/dL (13.5-17.5) Hematocrit 41.8 % (41.0-53.0) Mean Corpuscular Volume 93.0 fL (80.0-100.0) Mean Corpuscular Hemoglobin 31.8 pg (28.0-32.0) Mean Corpuscular Hemoglobin Concent 34.2 g/dL (32.0-36.0) Red Cell Distribution Width 13.7 % (11.8-14.3) Platelet Count 264 10^3/uL (140-450) Mean Platelet Volume 8.6 fL (6.9-10.8) Neutrophils (%) (Auto) 53.0 % (37.0-80.0) Lymphocytes (%) (Auto) 29.1 % (10.0-50.0) Monocytes (%) (Auto) 9.5 % (0.0-12.0) Eosinophils (%) (Auto) 7.3 % (0.0-7.0) Basophils (%) (Auto) 1.1 % (0.0-2.0) Neutrophils # (Auto) 3.3 10 ^3/uL (1.6-8.6) Lymphocytes # (Auto) 1.8 10 ^3/uL (0.4-5.4) Monocytes # (Auto) 0.6 10 ^3/uL (0-1.3) Eosinophils # (Auto) 0.5 10 ^3/uL (0-0.8) Basophils # (Auto) 0.1 10 ^3/uL (0-0.2) Nucleated Red Blood Cells 0.1 % Sodium Level 139 mmol/L (136-145) Potassium Level 3.6 mmol/L (3.5-5.1) Chloride Level 101 mmol/L (98-107) Carbon Dioxide Level 26 mmol/L (20-31) Anion Gap 12 (5-15) Blood Urea Nitrogen 22 mg/dL (9-23) Creatinine 1.32 mg/dL (0.700-1.30) Glomerular Filtration Rate Calc 59 mL/min (>90) BUN/Creatinine Ratio 16.7 (10.0-20.0) Serum Glucose 110 mg/dL (74-106) Calcium Level 9.0 mg/dL (8.7-10.4) Total Bilirubin 1.4 mg/dL (0.2-1.0) Aspartate Amino Transferase (AST) 22 U/L (13-40) Alanine Aminotransferase (ALT) 45 U/L (7-40) Alkaline Phosphatase 81 U/L (46-116) Total Protein 7.3 g/dL (5.7-8.2) Albumin 4.2 g/dL (3.2-4.8) Free Prostate Specific Antigen 0.05 ng/mL (N/A) Percent Free Prostate Specific Ag 10.0 % (.) Prostate Specific Antigen Total 0.5 ng/mL (0.0-4.0) Test 03/15/25 14:35 03/15/25 14:05 Urine Color Yellow (Yellow) Urine Clarity Clear (Clear) Urine pH 6.0 (5.0-9.0) Urine Specific Freeman 1.017 (1.001-1.035) Urine Protein Negative (Negative) Urine Ketones Negative (Negative) Urine Blood Negative /uL (Negative) Urine Nitrite Negative (Negative) Urine Bilirubin Negative (Negative) Urine Urobilinogen Normal mg/dL (Negative) Urine Leukocyte Esterase Negative /uL (Negative) Urine RBC <1 /hpf (0 - 3) Urine Microscopic WBC /HPF (0-3) Urine Squamous Epithelial Cells None seen /hpf (<5) Urine Bacteria None seen /hpf (None Seen) Urine Hyaline Casts Few /lpf (0 - 2) Urine Glucose Normal mg/dL (Normal) Tumor Marker Alpha Fetoprotein <1.8 ng/mL (0.0-8.4) Carcinoembryonic Antigen 0.83 ng/mL (<=5.0) Other Laboratory Tests 03/16/25 05:26 Brief Hx & Hospital Course: 69 y/o male patient with history of prostate cancer presents with abdominal pain. Patient describes pain as burning. Denies fever, vomiting, diarrhea. Patient was admitted on 03/15/2025 for abdominal pain. Patient had CT imaging of his abdomen and pelvis. Patient was found to have multiple liver nodules. Patient does have underlying history of prostate cancer status posttreatment. Patient also found to have chronic constipation. Patient describes his pain as signs of gastritis. GI was consulted. Patient is status post EGD. Patient found to have a hiatal hernia with minimal grade erosive esophagitis and minimal gastroduodenitis. Patient was started on Carafate and Protonix. Patient also had a large left hydrocele of his testicle. Patient was seen by urology. They did recommend outpatient follow-up for possible drainage. MRI liver protocol was done. Liver nodules were found to be benign hemangioma and fatty infiltration of his liver. Patient was cleared for discharge by GI. He was instructed to follow-up with Dr. Diaz for outpatient colonoscopy. He will continue Carafate and Protonix. I instructed him on eating smaller meals and to not lay down shortly after a large meal. The patient received proper medical treatment and medications. Vital signs, Imaging and Laboratory Work was monitored daily. All consults recommendations were followed as provided. There were no complaints or new complaints upon discharge, all questions and concerns were answered. Patient was advised to return to the ER or call 911 if any headaches, dizziness, shortness of breath, chest pain, bleeding, fevers, or worsening of medical condition. Patient/Family was counseled about treatment plan, medications, possible side effects, patient verbalized understanding. All questions were answered to the best of my ability. The patient symptoms improved and they are okay to be DC. Condition at Discharge: Stable Final Diagnosis/Problems List Abdominal pain r/t mild gastritis, esophagitis s/p EGD- hiatal hernia found constipation liver lesions- benign hmangioma and fatty infiltration of liver hx prostate CA- outpt colonoscopy recommended left hydrocele chronic diverticular disease Discharge Disposition: Home Discharge Instruct/Medications Diet: Regular Activity: No Restrictions, As Tolerated Follow Up/Referral: pcp 1 week GI for colonoscopy Medications: start carafate and protonix Scheduled Allopurinol (Allopurinol), 2 TAB PO DAILY, (Reported) Atorvastatin Calcium (Atorvastatin Calcium), 1 TAB PO DAILY, (Reported) Atorvastatin Calcium (Atorvastatin Calcium), 1 TAB PO DAILY, (Reported) Pantoprazole Sodium Sesquihydr (Protonix), 40 MG PO DAILY Sucralfate (Carafate), 1 GM PO BIDAC Miscellaneous Medications Omeprazole (Gnp Omeprazole), 20 MG PO, (Reported) Sildenafil Citrate (Viagra), 50 MG PO, (Reported) Simethicone (Simethicone), 80 MG PO, (Reported) Discharge Statement: "Patient was advised to return to the ER or call 911 if any headaches, dizziness, shortness of breath, chest pain, abdominal pain, bleeding, fevers, or worsening of medical condition. Patient was counseled about treatment plan, medications, possible side effects, patientverbalized understanding. All questions were answered to the best of my ability. This discharge took greater then 30 minutes in planning, reviewing documentation, counseling the patient, and discussing with other team members." ASSESSMENT ASSESSMENT Assessment Abdominal pain r/t mild gastritis, esophagitis s/p EGD- hiatal hernia found constipation liver lesions- benign hmangioma and fatty infiltration of liver hx prostate CA- outpt colonoscopy recommended NATHANAEL KENYON NP Mar 18, 2025 10:34
[2025-03-18 13:00] VITALS: BP 119/84; PULSE 69; RESP 18; TEMP 98; O2SAT 94
[2025-03-18 13:04] VITALS: BP 137/97; PULSE 71; RESP 20; TEMP 98; O2SAT 94
--- NOTE | 2025-03-18 13:31 | ECG ---
[facility], [place] Test Date: 2025-03-17 Test Time: 12:58:50 Pat Name: CRAIG MURO Department: Room: 0274 B Gender: M Ordnance Officer: JORGE ALBERTO : 1955 Requested By: BC MONTIEL Order Number: [id number] Reading MD: Daron Escalante Measurements Intervals [place] Rate: 71 P: 47 [place]: 154 QRS: -18 QRSD: 102 T: 14 QT: 432 QTc: 469 Interpretive Statements Normal sinus rhythm Electronically Signed On 03-20-2025 19:45:35 PDT by Daron Escalante Please click the below link to view image of tracing.
--- NOTE | 2025-03-20 12:35 | ECG ---
[facility] Test Date: 2025-03-18 Test Time: 14:15:28 Pat Name: CRAIG MURO Department: Room: 0274 B Gender: M Process Worker: ASHLEIGH. : 1955 Requested By: NATHANAEL KENYON Order Number: [id number] Reading MD: Daron Escalante Measurements Intervals [place] Rate: 61 P: 30 RI: 162 QRS: 3 QRSD: 101 T: 30 QT: 431 QTc: 434 Interpretive Statements Sinus rhythm Low voltage, extremity leads Baseline wander in lead(s) V1 Electronically Signed On 03-20-2025 20:00:21 PDT by Daron Escalante Please click the below link to view image of tracing.
== END 2025-03-18 14:45 | disposition home or self-care (01) | DRG 382 ==
LOC: ER 13:21 → OVERFLOW 18:07 → WEST WING 22:20
PROVIDERS: ADMIT Nurse Practitioner; ATTEND Nurse Practitioner
PROC: 0DB68ZX Excision of Stomach, Via Natural or Artificial Opening Endoscopic, Diagnostic (ICD-10-PCS; 2025-03-17)
PROC: 0DB48ZX Excision of Esophagogastric Junction, Via Natural or Artificial Opening Endoscopic, Diagnostic (ICD-10-PCS; 2025-03-17)
PROC: 0DB98ZX Excision of Duodenum, Via Natural or Artificial Opening Endoscopic, Diagnostic (ICD-10-PCS; principal; 2025-03-17 13:20)
DX: K22.10 Ulcer of esophagus without bleeding (principal); K29.70 Gastritis, unspecified, without bleeding; K44.9 Diaphragmatic hernia without obstruction or gangrene; N43.3 Hydrocele, unspecified; Z82.49 Family history of ischemic heart disease and other diseases of the circulatory system; E11.9 Type 2 diabetes mellitus without complications; I10 Essential (primary) hypertension; E78.5 Hyperlipidemia, unspecified; K29.90 Gastroduodenitis, unspecified, without bleeding; Z85.46 Personal history of malignant neoplasm of prostate; K57.30 Diverticulosis of large intestine without perforation or abscess without bleeding; K59.09 Other constipation; K76.89 Other specified diseases of liver; Z79.899 Other long term (current) drug therapy; D18.03 Hemangioma of intra-abdominal structures
CPT/HCPCS: 36415; 74176; 74183; 80048; 80053; 81001; 82105; 82378; 82962; 84154; 85025; 86301; 93005; G0378; J1815; J2405; J2470; J2704

== ENCOUNTER 2025-04-12 07:16 | Emergency (ER) | payer OTHER, MEDICAID ==
[~2025-04-12] VITALS: Ht 170.2 cm; Wt 89.0 kg
[~2025-04-12 07:16] MED LIST: ALLO100T PO; ATOR20TA50 PO; OMEP20TA PO; PANT40TA2 PO; SILD50TA PO; SIME80CH49 PO; SUCR1TAB31 PO
--- NOTE | 2025-04-12 07:59 | ED.PDOC ---
Musculoskeletal HPI Comments 69-year-old male who presents to the ED for chief complaint of lower extremity pain. Patient states that for the past one month he has been having by lateral thigh pain and burning. Patient states yesterday while he was cooking after a 1/2 hour standing, noted he had burning and pain near the bilateral upper thigh area states he went to go lie down. Patient states the pain temporarily went away while elevating his legs but states it reappeared. The patient in the ED denies any associated trauma or fall injury. Patient denies any history of chronic conditions. Patient otherwise in the ED and denies any other symptoms. Chief Complaint: Lower Extremity Time Seen by MD: 08:02 Reviewed Notes: Medications, Allergies Allergies: Coded Allergies: NO KNOWN ALLERGIES (Unverified , 03/15/25) Home Meds Active Scripts Pantoprazole Sodium Sesquihydr (Protonix) 40 Mg Tab, 40 MG PO DAILY for 30 Days, #30 TAB Prov:NATHANAEL KENYON NP 03/18/25 Sucralfate (CARAFATE) 1 Gm Tab, 1 GM PO BIDAC for 30 Days, #60 TAB Prov:NATHANAEL KENYON TICKER INSTALLER 03/18/25 Reported Medications Sildenafil Citrate (Viagra) 50 Mg Tab, 50 MG PO, TAB 03/16/25 Simethicone (Simethicone) 80 Mg Chw, 80 MG PO, TAB.CHEW 03/16/25 Omeprazole (Gnp Omeprazole) 20 Mg Tab, 20 MG PO, TAB 03/16/25 Atorvastatin Calcium (ATORVASTATIN CALCIUM) 20 Mg Tab, 1 TAB PO DAILY, #30 TAB 5 Refills 03/16/25 Atorvastatin Calcium (ATORVASTATIN CALCIUM) 20 Mg Tab, 1 TAB PO DAILY 03/15/25 Allopurinol (Allopurinol) 100 Mg Tab, 2 TAB PO DAILY 03/15/25 Information Source: Patient Mode of Arrival: Ambulatory Brought in by: Self Location: Bilateral Extremity Location: Thigh Past Medical History PAST MEDICAL HISTORY: Cancer, DM, High Lipids, HTN Surgical History: Denies all surgeries Family History Family History: Family hx of heart jesus Social History Smoker: Non-Smoker Alcohol: Denies ETOH Use Drugs: Denies Drug Use Lives In: Home Musculoskeletal: reports: joint pain (Bilateral upper thigh area) Physical Exam General Appearance: No Apparent Distress, Normal HEENT: Normal ENT Inspection, Pharynx Normal, TMs Normal Neck: Full Range of Motion, Non-Tender, Normal, Normal Inspection Respiratory: Chest Non-Tender, Lungs Clear, No Accessory Muscle Use, No Respiratory Distress, Normal Breath Sounds Cardiovascular: No Edema, No JVD, No Murmur, No Gallop, Normal Peripheral Pulses, Regular Rate/Rhythm Breast Exam: Deferred Gastrointestinal: No Organomegaly, Non Tender, No Pulsatile Mass, Normal Bowel Sounds, Soft Genitalia: Deferred Pelvic: Deferred Rectal: Deferred Extremities: Normal range of motion, Other (No tenderness on exam, no deformity noted, DP 2+, normal range of motion, neurovascularly intact) Musculoskeletal : Apperance: Normal Neurologic: Alert, used car sales manager II-XII nml as Tested, No Motor Deficits, Normal Affect, Normal Mood, No Sensory Deficits Cerebellar Function: Normal Reflexes: Normal Skin: Dry, Normal Color, Warm Lymphatic: No Adenopathy Was a procedure done? Was a procedure done?: No Differential Diagnosis EXT Differential Diagnosis: DJD, Arthritis Other Differential Diagnosis Muscle strain, muscle spasms arthritis, osteoporosis X-Ray, Labs, Meds, VS Vital Signs Date Time Temp Pulse Resp B/P (MAP) Pulse Ox O2 Delivery O2 Flow Rate FiO2 04/12/25 09:22 98.1 79 18 129/96 (107) 93 98.1 04/12/25 09:22 79 18 93 Room Air 04/12/25 07:51 79 18 93 Room Air 04/12/25 07:51 97.8 79 18 129/96 (107) 93 97.8 04/12/25 07:18 97.9 77 16 134/69 97 97.9 X-Ray, Labs, Meds, VS Comment Patient arrives alert and oriented, ABC's intact, afebrile, vital signs stable, saturating well in room air Diagnostic imaging ordered by me and results interpreted by radiology : Bilateral lower extremity DVT study Results show no signs of DVT. Physical exam shows no signs of peripheral vascular disease. There were also no signs of arterial occlusion at this time. Patient is stable for discharge at this time. External notes reviewed. Test results and diagnostic imaging interpreted. All diagnostic findings, discharge care, education and instructions provided Follow-up with PCP in 2 to 3 days Patient verbalized understanding and agreed to treatment plan Vital signs stable, afebrile, no acute distress noted Patient ambulatory with strong steady gait Advised to return precautions for any new or worsening symptoms, return to ER immediately for re-evaluation Patient is aware that the purpose of this visit was for an acute medical emergency requiring emergent stabilization. Chronic conditions, including malignancies have not been ruled out. Patient is instructed to follow up with PCP as directed and discharge instructions for continued care and workup. If unable to arrange follow-up, patient is to return to the emergency department for reassessment. Patient (parent or legal guardian if applicable) was given verbal and written discharge instructions and acknowledges understanding. Additional MDM Review of External, Non-ED records: External records reviewed. Discussion with independent historian (EMS, family) history obtained from the patient/parents (if applicable) at bedside Chronic conditions affecting care: None Social determinants of health affecting care: None Consideration of admission (observation or admission): I considered escalation of care to admission for this patient, however given the reassuring workup, the patient is safe for outpatient management. Discussion with the Radiology: No Tests considered but not performed: Prescription medication considered but not given: 12 lead EKG interpretation: Time of 1ST Reevaluation: 08:35 Reevaluation 1ST: Unchanged Patient Education/Counseling: Diagnosis, Treatment Family Education/Counseling: No Family Present Departure 1 Departure Time of Disposition: 09:12 Impression: Primary Impression: Leg pain Qualified Codes: M79.604 - Pain in right leg; M79.605 - Pain in left leg Disposition: 01 HOME / SELF CARE / HOMELESS Condition: Stable Discharged With: Self Critical Care Note Critical Care Time?: No Stability Stability form required: No Heart Score Heart Score: Heart Score Response (Comments) Value History N/A 0 EKG N/A 0 Age N/A 0 Risk Factors N/A 0 Troponin N/A 0 Total 0 I personally scribed for FRED CORTES NP ([email or web address]) on 04/12/25 at 07:59. Electronically submitted by Josep Smith ([email or web address]). I personally scribed for FRED CORTES NP ([email or web address]) on 04/12/25 at 08:06. Electronically submitted by Josep Smith ([email or web address]). I personally scribed for FRED CORTES NP ([email or web address]) on 04/12/25 at 08:32. Electronically submitted by Josep Smith ([email or web address]). FRED CORTES NP Apr 12, 2025 07:59
--- NOTE | 2025-04-12 09:01 | DVH ---
Bilateral lower extremity venous duplex Clinical History: bilateral leg pain Comparison: CT CT AB PEL WO CON-NO ORAL OR IV on DOS: 03/15/25 Technique: Duplex Doppler evaluation of the deep venous systems of both lower extremities from the common femora l veins to the popliteal veins including color Doppler and spectral/pulsed waveform analysis was perf ormed. Findings: RIGHT SIDE: The common femoral vein demonstrates appropriate compressibility and waveform variability. There is compressibility/patency of the great saphenous vein at the proximal thigh. The femoral vein demonstrates appropriate compressibility and waveform variability. The deep femoral vein demonstrates appropriate compressibility and waveform variability. The popliteal vein demonstrates appropriate compressibility and waveform variability. There is normal compressibility at the tibioperoneal trunk. LEFT SIDE: The common femoral vein demonstrates appropriate compressibility and waveform variability. There is compressibility/patency of the great saphenous vein at the proximal thigh. The femoral vein demonstrates appropriate compressibility and waveform variability. The deep femoral vein demonstrates appropriate compressibility and waveform variability. The popliteal vein demonstrates appropriate compressibility and waveform variability. There is normal compressibility at the tibioperoneal trunk. Impression: No right or left femoropopliteal venous thrombosis.
[2025-04-12 09:22] VITALS: BP 129/96; PULSE 79; RESP 18; TEMP 98.1; O2SAT 93
== END 2025-04-12 09:25 | disposition home or self-care (01) ==
LOC: ER 07:16
DX: M79.652 Pain in left thigh (principal); M79.651 Pain in right thigh; I10 Essential (primary) hypertension; E11.9 Type 2 diabetes mellitus without complications; E78.5 Hyperlipidemia, unspecified; Z79.899 Other long term (current) drug therapy
CPT/HCPCS: 93970

== ENCOUNTER 2025-05-01 06:23 | Emergency (ER) | payer OTHER, MEDICAID ==
[~2025-05-01] VITALS: Ht 172.7 cm; Wt 90.4 kg
--- NOTE | 2025-05-01 07:26 | ED.PDOC ---
Musculoskeletal HPI Comments This is a 69 year-old male who presents to the ED with a chief complaint of bilateral lower extremity pain with associated numbing sensation for X4 months. Patient reports additional back pain and discomfort, with previous diagnoses of scoliosis and arthritis. Patient reports some relief to bilateral lower extremities when working out. Patient suspects possible sciatica as the cause of his symptoms, as he has a FHx of Sciatica. Patient has no further complaints at this time and otherwise denies symptoms of dizziness, weakness, fever, chills, headache, or N/V/D. Chief Complaint: Lower Extremity Time Seen by MD: 07:06 Reviewed Notes: Medications, Allergies Allergies: Coded Allergies: NO KNOWN ALLERGIES (Unverified , 03/15/25) Home Meds Active Scripts Pantoprazole Sodium Sesquihydr (Protonix) 40 Mg Tab, 40 MG PO DAILY for 30 Days, #30 TAB Prov:NATHANAEL KENYON [employer] 03/18/25 Sucralfate (CARAFATE) 1 Gm Tab, 1 GM PO BIDAC for 30 Days, #60 TAB Prov:NATHANAEL KENYON [employer] 03/18/25 Reported Medications Sildenafil Citrate (Viagra) 50 Mg Tab, 50 MG PO, TAB 03/16/25 Simethicone (Simethicone) 80 Mg Chw, 80 MG PO, TAB.CHEW 03/16/25 Omeprazole (Gnp Omeprazole) 20 Mg Tab, 20 MG PO, TAB 03/16/25 Atorvastatin Calcium (ATORVASTATIN CALCIUM) 20 Mg Tab, 1 TAB PO DAILY, #30 TAB 5 Refills 03/16/25 Atorvastatin Calcium (ATORVASTATIN CALCIUM) 20 Mg Tab, 1 TAB PO DAILY 03/15/25 Allopurinol (Allopurinol) 100 Mg Tab, 2 TAB PO DAILY 03/15/25 Information Source: Patient Mode of Arrival: Ambulatory Location: Bilateral Extremity Location: Leg Timing: Months Severity: Moderate Bear Weight: Fully Circumstances: Spontaneous Onset of Symptoms: Spontaneous Symptoms: Pain DVT Risk Factors: NONE Associated signs and symptoms: Back pain, Leg pain Past Medical History PAST MEDICAL HISTORY: Cancer, DM, High Lipids, HTN Surgical History: Denies all surgeries Family History Family History: Family hx of heart jseus Social History Smoker: Non-Smoker Alcohol: Denies ETOH Use Drugs: Denies Drug Use Lives In: Home Constitutional: denies: chills, diaphoresis, fatigue, fever, malaise, sweats, weakness, others EENTM: denies: blurred vision, double vision, ear bleeding, ear discharge, ear drainage, ear pain, ear ringing, eye pain, eye redness, hearing loss, mouth pain, mouth swelling, nasal discharge, nose bleeding, nose congestion, nose pain, photophobia, tearing, throat pain, throat swelling, voice changes, others Respiratory: denies: cough, hemoptysis, orthopnea, SOB at rest, shortness of breath, SOB with excertion, stridor, wheezing, others Cardiovascular: denies: chest pain, dizzy spells, diaphoresis, Dyspnea on ex ertion, edema, irregular heart beat, left arm pain, lightheadedness, palpitations, PND, syncope, others Gastrointestinal: denies: abdomen distended, abdominal pain, blood streaked bowels, constipated, diarrhea, dysphagia, difficulty swallowing, hematemesis, melena, nausea, poor appetite, poor fluid intake, rectal bleeding, rectal pain, vomiting, others Genitourinary: denies: burning, dysuria, flank pain, frequency, hematuria, incontinence, penile discharge, penile sore, pain, testicle pain, testicle swelling, urgency, others Neurological: denies: dizziness, fainting, headache, left sided numbness, left sided weakness, numbness, paresthesia, pre-existing deficit, right sided numbness, right sided weakness, seizure, speech problems, tingling, tremors, weakness, others Musculoskeletal: reports: joint pain; denies: back pain, gout, joint swelling, muscle pain, muscle stiffness, neck pain, others Integumetry: denies: bruises, change in color, change in hair/nails, dryness, laceration, lesions, lumps, rash, wounds, others Allergic/Immunocompromised: denies: Difficulty Healing, Frequent Infections, Hives, Itching, others Hematologic/Lymphatic: denies: anemia, blood clots, easy bleeding, easy bruising, swollen glands, others Endocrine: denies: excessive hunger, excessive sweating, excessive thirst, excessive urination, flushing, intolerance to cold, intolerance to heat, unexplained weight gain, unexplained weight loss, others Psychiatric: denies: anxiety, bipolar disorder, depression, hopeless, panic disorder, schizophrenia, sleepless, suicidal, others All Other Systems: Reviewed and Negative Physical Exam General Appearance: Mild Distress HEENT: Normal ENT Inspection Neck: Non-Tender, Normal Respiratory: No Respiratory Distress Cardiovascular: None Breast Exam: Deferred Gastrointestinal: Normal Bowel Sounds Genitalia: Deferred Pelvic: Deferred Rectal: Deferred Extremities: No pedal edema Musculoskeletal : Apperance: Normal Neurologic: No Motor Deficits Cerebellar Function: NOT DONE Reflexes: Normal Skin: Dry, Normal Color, Warm Lymphatic: NOT DONE Was a procedure done? Was a procedure done?: No Differential Diagnosis EXT Differential Diagnosis: Deep Vein Thrombosis, Fracture, Sprain, Strain, Arthritis X-Ray, Labs, Meds, VS Vital Signs Date Time Temp Pulse Resp B/P (MAP) Pulse Ox O2 Delivery O2 Flow Rate FiO2 05/01/25 06:25 97.1 84 18 131/98 96 97.1 Time of 1ST Reevaluation: 07:58 Reevaluation 1ST: Unchanged Patient Education/Counseling: Diagnosis, Treatment Family Education/Counseling: No Family Present Departure 1 Departure Time of Disposition: 07:29 (Patient presents with a lower back pain that in my judgment sounds most consistent with sciatica. Patient's outlined medications. We will refer patient to orthopedics and outpatient follow up) Impression: Primary Impression: Sciatica Additional Impression: Lower back pain Disposition: 01 HOME / SELF CARE / HOMELESS Condition: Stable Referrals: CASEY RENO MD Additional Instructions: You likely have sciatica. You were referred to orthopedic surgery. Please call for an appointment. For pain you can take the followinam: Ibuprofen 400mg with food Noon: Acetaminophen 1000mg 4pm: Ibuprofen 400mg with food 8pm: Acetaminophen 1000mg You should follow up with your regular doctor within one week to ensure you are doing better. If your symptoms worsen or you have any other concerns then please return to the ER. Discharged With: Self Critical Care Note Critical Care Time?: No Stability Stability form required: No Heart Score Heart Score: Heart Score Response (Comments) Value History N/A 0 EKG N/A 0 Age N/A 0 Risk Factors N/A 0 Troponin N/A 0 Total 0 I personally scribed for JOSE HAN MD ([email or web address]) on 05/01/25 at 07:26. Electronically submitted by Barbra ConwayTripnary). JOSE HAN MD May 01, 2025 07:26
[2025-05-01 08:01] VITALS: BP 138/98; PULSE 78; RESP 17; TEMP 98.8; O2SAT 95
== END 2025-05-01 08:13 | disposition home or self-care (01) ==
LOC: ER 06:23
DX: M54.40 Lumbago with sciatica, unspecified side (principal); M79.604 Pain in right leg; M79.605 Pain in left leg; I10 Essential (primary) hypertension; E11.9 Type 2 diabetes mellitus without complications; M19.90 Unspecified osteoarthritis, unspecified site; M41.9 Scoliosis, unspecified; E78.5 Hyperlipidemia, unspecified; Z79.899 Other long term (current) drug therapy